=== PATIENT | female | born 1980 | race Caucasian/White ===

== ENCOUNTER 2017-03-31 07:50 | Emergency (ER) | payer OTHER ==
[~2017-03-31] VITALS: Ht 165.1 cm; Wt 113.6 kg
[~2017-03-31 07:50] MED LIST: LEVO1TAB75 PO; PROZ20 PO
[2017-03-31 07:55] VITALS: BP 127/83; PULSE 79; RESP 20; O2SAT 97
--- NOTE | 2017-03-31 09:08 | ED.REPORT ---
HPI-Extremity Problem Lower Date of Service March 31, 2017 ED Provider: Ivan Roca MD Pt is a 37 year old female with a hx of HTN and asthma presenting to the ED complaining of severe bilateral knee pain and burning shooting to her ankles onset this morning at 0300 when she woke up. Denies any recent injury, overuse, swelling, redness, fever or chills.She denies any symptoms like this before or family history of rheumatoid arthritis or Lupus. She is unable to stand or walk on her own due to pain. Pt takes Lisinopril and has been taking hydrochlorothiazide for 2 years. Pt was on Prednisone for 5 days for asthma until 2 days ago. She reports that the pain is worse on the right. Nursing Notes Stated Complaint: BILATERAL KNEE AND ANKLE PAIN Chief Complaint: Extremity Trauma Nursing Notes Reviewed: Yes ([facility]man not reconciled) Allergies: Coded Allergies: No Known Allergies (Verified , 11/10/15) Scheduled Fluoxetine (Prozac) 20 Mg Capsule 20 MG PO BID TAKES 40MG IN AM; 20MG IN PM Levonorgestrel-Ethin Estradiol (Levonor-Eth Estra 0.09-0.02 mg) 90 Mcg-20 Mcg Tablet 1 EACH PO DAILY 0.1MG-20MCG TAB Scheduled PRN Hydrocodone-Acetaminophen 5-325 mg (Hydrocodone-Acetaminophen 5-325 mg) 1 Each Tablet 1-2 TABLET PO Q6H PRN PRN For Pain General Time Seen by MD: 08:59 Chief Complaint Knee injury right, Knee injury left, Ankle injury right, Ankle injury left Hx Obtained From: Patient Arrived By: Walk-in Onset Occurred: 5 - 8 hours ago Symptom Duration: Since onset Location: : Ankle left: Ankle right: Knee left: Knee right Quality: Painful Severity: Current: Pain level 10 out of 10 Severity: Maximum: Severe Associated with: Reports: Unable to bear weight, Unable to walk, Denies: Fever, Joint swelling, Swelling Recent Healthcare: No recent doctor visit, No recent hospitalization Similar Sx Previous: No Past Medical History Past Medical History history of endometriosis History of alcohol and substance abuse asthma Past Surgical History Diagnostic laparoscopy with expiration and excision of endometriosis 3 Appendectomy Status post excision of left lower quadrant abdominal wall endometrioma October 2015 Smoking History Current Some Day Smoker Social History Alcohol Use: In recovery Drug Use: In recovery Ambulatory Status Independent Review of Systems Constitutional: Denies: Chills, Fever Musculoskeletal: Reports: Joint pain, Denies: Joint swelling Skin: Denies Rash, Denies Swelling Complete sys rev & neg: except as marked. Physical Exam Initial Vital Signs Vital Signs (First) Date Time Temp Pulse Resp B/P Pulse Ox O2 Delivery O2 Flow Rate FiO2 03/31/17 07:55 36.1 79 20 127/83 97 Room Air Initial VS: Reviewed Head / Eyes: Atraumatic, Normocephalic, PERRL ENT: Mucous membranes moist, Conjunctiva normal, No scleral icterus Cardiovascular: Regular rate & rhythm, Heart sounds normal, Intact distal pulses Abdomen / GI: Soft, Non-tender, No guarding, No rebound, No distention Upper Extremities: Vascular intact, Neuro intact, No swelling, No tenderness Skin: Warm, Dry, No cyanosis Neurologic: Alert, Oriented, Nonfocal Psychiatric: Mood/affect normal, Behavior normal, Normal thought content Lower Extremity / Pelvis / MS: Atraumatic, Full range of motion, Neurologic intact, Vascular intact Tender everywhere, knee to foot bilaterally. No effusion, warmth, or erythema. No clinical signs of swelling. General/Constitutional: Awake, Alert, No acute distress Respiratory / Chest: Breath sounds NL, Breath sounds = bilat, No respiratory distress, No rales, No rhonchi, No wheezing Interpretation & Diagnostics Lab Results Interpretation Result Diagram: 03/31/17 0930 03/31/17 0930 Test 03/31/17 09:30 03/31/17 09:38 03/31/17 09:50 White Blood Count 8.4th/mm3 (3.8-10.1) Red Blood Count 4.44mil/mm3 (3.90-5.20) Hemoglobin 14.3g/dL (12.0-15.6) Hematocrit 40.7% (35.0-46.0) Mean Corpuscular Volume 91.7fL (81-100) Mean Corpuscular Hemoglobin 32.2pg (27.0-35.0) Mean Corpuscular Hemoglobin Concent 35.1% (32.0-37.0) Red Cell Distribution Width 14.3% (12.3-15.4) Platelet Count 205bil/L (150-400) Neutrophils (%) (Auto) 40.9% (40-74) Lymphocytes (%) (Auto) 45.7% (14-46) Monocytes (%) (Auto) 9.0% (4-12) Eosinophils (%) (Auto) 2.0% (0-5) Basophils (%) (Auto) 0.5% (0-3) Erythrocyte Sedimentation Rate 2mm/hr (0-32) Sodium Level 139mEq/L (134-144) Potassium Level 3.1mEq/L (3.5-5.2) Chloride Level 96mEq/L (97-108) Carbon Dioxide Level 30mmol/L (18-29) Blood Urea Nitrogen 15mg/dL (6-20) Creatinine 0.83mg/dL (0.57-1.00) Estimat Glomerular Filtration Rate 111mL/min (>59) Glucose Level 103mg/dL (60-99) Calcium Level 9.5mg/dL (8.5-10.1) Total Bilirubin 0.4mg/dL (0.0-1.2) Aspartate Amino Transf (AST/SGOT) 38U/L (0-50) Alanine Aminotransferase (ALT/SGPT) 41U/L (0-32) Alkaline Phosphatase 72U/L (25-150) C-Reactive Protein < 0.0mg/dL (0.0-0.5) Total Protein 6.2g/dL (6.4-8.4) Albumin 3.8g/dL (3.4-5.0) Hold Howard Top Tube Received (Received) Alcohols 156mg/dL (0-10) Lab Results Interpretation: CBC normal CMP mild hypokalemia, mild liver function abnormalities consistent with EtOH EtOH elevated ESR normal, CRP normal Re-Eval/Medical Decision Med Decision/Clinical Course This is a 37-year-old female presents to the emergency department complaining of waking up from sleep with atraumatic bilateral lower extremity pain from the knees down to the feet so severe that she reports to be in agony, and having difficulty walking. Again no trauma, no fever, no recent overuse, no swelling, no redness, no increased warmth, no rash- No prior history of similar symptoms. She does report she just completed a course of prednisone 2 days ago for mild asthma exacerbation was now resolved. She told the nurse that she had "2 shots" of alcohol to try and help the pain, and is not clinically intoxicated and has normal speech. Her physical exam reveals no physical signs of trauma, no redness, no warmth, no effusion. She is tender to even light touch everywhere from the knee down to the feet on both sides. There is no clinical signs of a septic joint or effusion or warmth. No visible signs of trauma. There is no swelling or findings suggestive of venous thrombosis. Both legs are neurovascularly intact. Patient had screening labs that were normal including a sedimentation rate and CRP in terms of an acute inflammatory process. I am not finding clinical indication for x-ray radiographs given the complete absence of trauma, bilateral symptoms, and the lack of physical exam findings. The patient did receive a dose of Toradol, and 2 hydrocodone-the dorsal having some pain. However alcohol also return back elevated. I talked with her and recommended a social work consult which he declined, she tells me she does not drink daily at this point, that she has a sponsor that she works with him resources and does not need any additional assistance. I have indicated I am not finding indication for additional testing and provided reassurance, but do think given the absence of a definitive cause is having this kind of pain I recommend follow-up with her primary care physician if not clearly improving over the next 3 days. In the end of recommended ibuprofen, but a written for a total of #15 hydrocodone for pain control. I have carefully advised that she not climb while taking alcohol. She is discharged in improved condition. Source of Hx: Old records Re-Evaluation/Progress : Time of Eval: 11:58 Patient Status: Condition improved Re-Evaluation/Progress Note: Pt updated on results. 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 Pt says she does not drink EtOH daily, denies withdrawal symptoms. She does have a hx of alcohol problems in the past. She will be discharged. Differential Diagnosis: Negative: Abrasion, Abscess, Ankle dislocation, Arterial occlus/ischemia, Cellulitis, Compartment syndrome, Fracture, Nail bed laceration, Open fracture, Patellar dislocation, Puncture wound, Venous thromboembolism Counseled Regarding: Diagnosis, Lab results, Need for follow-up, When/why to return to ED Discharge & Departure Impression: Primary Impression: Lower extremity pain, bilateral Additional Impression: Alcohol use Disposition: Home Discharge Condition All VS Reviewed: Yes Condition: Improved Additional Instructions: 1. A dangerous cause of the lower extremity pain was not identified. 2. Your blood tests are normal-except for your alcohol, and your liver function tests. 3. I suspect will improve with improve with time. Activities as tolerated. Apply warm packs as needed for comfort. 4. Ibuprofen 400-800 mg 3 times a day as need for pain. 5. If needed for more severe pain, take hydrocodone/APAP 1-2 tabs up to every 6 hours. Use sparingly, and do not combine with alcohol. Note this medication does contain a narcotic and causes drowsiness. No driving for at least 4 hours after taking. 6. He had a moderate amount of alcohol or system, please work cutting back- continue to work with the resources. If you decide he needs further assistance , please call crisis respite/sobering services. 7. Recommend calling her primary care physician's office tomorrow to schedule follow-up appointment. Referrals: Gisselle Herron PA-C (PCP) Scribe Attestation Portions of this note were transcribed by Divina Vargas. I, Dr. Roca personally performed the history, physical exam and medical decision-making; I reviewed and confirmed the accuracy of the information in the transcribed note. Signed by: Robert Mejia, 03/31/2017 and 1218. copies to: Gisselle Herron PA-C, Matthew F MD March 31, 2017 09:07 DIVINA VARGAS March 31, 2017 09:23
[2017-03-31] MEDS ORDERED: HYDROcodone-APAP 5-325 mg Tablet PO ONE (09:25)
[2017-03-31 09:46] LABS: BASOPHILS % (AUTO) 0.5 % (0-3); Mean Corpuscular Hemoglobin 32.2 pg (27.0-35.0); Mean Corpuscular Volume 91.7 fL (81-100); NEUTROPHILS % (AUTO) 40.9 % (40-74); Platelet Count 205 bil/L (150-400)
[2017-03-31 10:07] LABS: ERYTHROCYTE SEDIMENTATION RATE 2 mm/hr (0-32)
[2017-03-31 11:57] VITALS: BP 124/76; PULSE 80; RESP 18; O2SAT 98
[2017-03-31] MEDS ORDERED: HYDR-4003 PO (12:03)
[2017-03-31 12:21] VITALS: BP 130/89; PULSE 75; RESP 14; O2SAT 96
== END 2017-03-31 12:22 | disposition home or self-care (01) ==
LOC: SED 07:50
DX: M79.661 Pain in right lower leg (principal); M79.662 Pain in left lower leg; Z72.89 Other problems related to lifestyle; J45.909 Unspecified asthma, uncomplicated; F17.200 Nicotine dependence, unspecified, uncomplicated
CPT/HCPCS: 36415; 80053; 85025; 85651; 86140; 96372; 99284; G0480; J1885